=== PATIENT | female | born 1930 | race Caucasian/White ===

== ENCOUNTER 2017-09-24 17:50 | Inpatient (IN) ==
[2017-09-24 18:56] LABS: PT Patient Result 10.5 SECS
[2017-09-24] MEDS ORDERED: ONDANSETRON 4 MG/2 ML VIAL IV STA (19:17)
[2017-09-24] MEDS ORDERED: MEPERIDINE 25 MG/1 ML VIAL IV STA (19:18)
[2017-09-24] MEDS ORDERED: ONDANSETRON 4 MG/2 ML VIAL IV PRN (20:17)
[2017-09-24] MEDS ORDERED: BISACODYL 5 MG TABLET PO PRN (20:17)
[2017-09-24] MEDS ORDERED: tiZANidine 4 MG TABLET PO PRN (20:21)
[2017-09-24] MEDS ORDERED: PROMETHAZINE 25 MG TABLET PO PRN (20:21)
[2017-09-24] MEDS ORDERED: ALBUTEROL/IPRATROPIUM 3 ML NEB RESP TX PRN (20:25)
[2017-09-24] MEDS: SODIUM CHLORIDE 0.9% 1,000 ML IV SCH (20:40)
[2017-09-24 21:11] LABS: Apearance,Urine CLEAR (Clear); Bacteria,Urine Many /HPF (Few); Bilirubin,Urine Negative (Negative); Blood, Urine Negative (Negative); Glucose,Urine (UA) Negative (Negative); Hyaline Casts,Urine 1 /LPF (0-3); Ketones,Urine Negative (Negative); Mucus,Urine Occasional /LPF (Occasional); Nitrite,Urine Positive (Negative); Protein,Urine Negative; RBC,Urine 1 /HPF (0-4); Renal Epithelial Cells,Urine Occasional /HPF (<1); Urine Color Yellow (Yellow); Urine Specific Gravity 1.005 (1.001-1.035); Urine Urobilinogen < 2.0 EU/DL (0.2-1.0); WBC,Urine 56 /HPF (0-6)
[2017-09-24] MEDS ORDERED: MAGNESIUM SULF RIDER 4 GM in PREMIX 1 EACH IV ONE (21:48)
[2017-09-24] MEDS: MORPHINE 4 MG/1 ML VIAL IV PRN (22:10)
[2017-09-24] MEDS: LOVASTATIN 20 MG TABLET PO SCH (22:46)
[2017-09-24] MEDS: TEMAZEPAM 15 MG CAPSULE PO PRN (22:46)
[2017-09-24] MEDS: METHENAMINE HIPPURATE 1 GM TABLET PO SCH (22:47)
[2017-09-24] MEDS: GABAPENTIN 600 MG TABLET PO SCH (22:47)
[2017-09-24] MEDS: FAMOTIDINE 20 MG TABLET PO SCH (22:47)
[2017-09-24] MEDS: cycloSPORINE OPH EMUL 1 VIAL BOTH EYES SCH (22:50)
[2017-09-25] MEDS: SODIUM CHLORIDE 0.9% 1,000 ML IV SCH ×3 (02:56→16:38)
[2017-09-25 05:55] LABS: Basophils % 0.3 % (0.0-0.8); Eosinophils # 0.2 10*3/uL (0.0-0.87); Eosinophils % 2.5 % (0.00-10.9); Hematocrit 28.2 VOL% (35.7-47.0); Hemoglobin 9.1 GM/DL (12.0-16.0); Immature Granulocytes % 0.4 %; Immature Granulocytes Absolute 0.03 #; Lymphocytes # 1.4 10*3/uL (1.4-4.0); Lymphocytes % 20.1 % (21.3-54.2); Mean Corpuscular HGB Conc 32.3 GM/DL (32-36); Mean Corpuscular Hemoglobin 33 PG (27-34); Mean Corpuscular Volume 103.3 FL (87-102); Mean Platelet Volume 9.9 FL (9.6-12.0); Monocytes # 0.7 10*3/uL (0.11-0.8); Monocytes % 9.7 % (1.7-12.7); Neutrophils # 4.5 10*3/uL (1.4-7.4); Platelet Count 200 T/CUMM (130-400); Red Blood Count 2.73 MC/CUMM (3.8-5.5); Red Cell Distribution Width 12.3 % (9.3-17.3); White Blood Count 6.7 T/CUMM (4-12)
[2017-09-25 06:51] LABS: Alanine Aminotransferase 15 U/L (13-56); Albumin 2.6 G/DL (3.4-5.0); Alkaline Phosphatase 37 U/L (45-117); Aspartate Amino Transferase 15 U/L (0-37); Bilirubin,Total < 0.39 MG/DL (0.2-1.0); Blood Urea Nitrogen 11 MG/DL (7-18); Calcium 7.6 MG/DL (8.5-10.1); Glucose 93 MG/DL (74-106); Osmolality,Calculated 273.7 MOS/KG (273-304); Sodium 138 MMOL/L (136-145); Total Protein 5.3 G/DL (6.4-8.3)
[2017-09-25] MEDS ORDERED: ceFAZolin 1,000 MG in SYRINGE 1 EACH IV ONE (07:26)
[2017-09-25] MEDS ORDERED: FAMOTIDINE 20 MG/2 ML VIAL IV ONE (08:13)
[2017-09-25] MEDS ORDERED: BACITRACIN OINT 0.9 GM PACK TOP ONE ×2 (08:29→09:29)
[2017-09-25] MEDS ORDERED: PIROXICAM 20 MG PO SCH (09:00)
[2017-09-25] MEDS ORDERED: ENOXAPARIN 40 MG/0.4 ML SYRINGE SUBCUT SCH (09:00)
[2017-09-25] MEDS ORDERED: ceFAZolin 1,000 MG VIAL ONE (09:29)
[2017-09-25] MEDS ORDERED: MAGNESIUM HYDROXIDE SUSP 30 ML UDCUP PO PRN (09:32)
[2017-09-25] MEDS ORDERED: ROPIVACAINE 0.5% 30 ML VIAL ONE (10:12)
[2017-09-25] MEDS ORDERED: HYDROmorphone 2 MG/1 ML VIAL ONE (10:34)
[2017-09-25] MEDS ORDERED: ONDANSETRON 4 MG/2 ML VIAL ONE ×2 (10:35→10:43)
[2017-09-25] MEDS: HYDROmorphone 2 MG/1 ML VIAL IV PRN ×2 (10:36→10:55)
[2017-09-25] MEDS ORDERED: MIDAZOLAM 2 MG/2 ML VIAL ONE (10:42)
[2017-09-25] MEDS ORDERED: DEXAMETHASONE 10 MG/1 ML VIAL ONE (10:42)
[2017-09-25] MEDS ORDERED: fentaNYL 100 MCG/2 ML VIAL ONE (10:42)
[2017-09-25] MEDS ORDERED: SEVOFLURANE 1 UNIT/15 MINUTE INH ONE (10:42)
[2017-09-25] MEDS ORDERED: NEOSTIGMINE 10 MG/10 ML VIAL ONE (10:43)
[2017-09-25] MEDS ORDERED: GLYCOPYRROLATE 0.4 MG/2 ML VIAL ONE (10:43)
[2017-09-25] MEDS ORDERED: ETOMIDATE 40 MG/20 ML VIAL IV ONE (10:43)
[2017-09-25] MEDS: MORPHINE 4 MG/1 ML VIAL IV PRN ×2 (11:40→15:42)
[2017-09-25] MEDS: KETOROLAC 15 MG/1 ML VIAL IV SCH ×3 (11:43→22:20)
[2017-09-25] MEDS: METHENAMINE HIPPURATE 1 GM TABLET PO SCH ×2 (12:19→20:32)
[2017-09-25] MEDS: RALOXIFENE 60 MG TABLET PO SCH (12:19)
[2017-09-25] MEDS: FAMOTIDINE 20 MG TABLET PO SCH ×2 (12:20→20:33)
[2017-09-25] MEDS: GABAPENTIN 600 MG TABLET PO SCH ×3 (12:20→20:31)
[2017-09-25] MEDS: cycloSPORINE OPH EMUL 1 VIAL BOTH EYES SCH ×2 (12:20→20:31)
[2017-09-25] MEDS: NORTRIPTYLINE 25 MG CAPSULE PO SCH (12:20)
[2017-09-25] MEDS: PANTOPRAZOLE 40 MG TABLET PO SCH (12:20)
[2017-09-25] MEDS: ACETAMINOPHEN 500 MG TABLET PO SCH ×2 (14:09→20:33)
[2017-09-25] MEDS: ceFAZolin 1,000 MG in SYRINGE 1 EACH IV SCH ×2 (15:42→22:43)
[2017-09-25] MEDS: FONDAPARINUX 2.5 MG/0.5 ML SYRINGE SUBCUT SCH (20:29)
[2017-09-25] MEDS: SULFAMETHOX/TRIMETHOPRIM 800-160 MG TABLET PO SCH (20:31)
[2017-09-25] MEDS: LOVASTATIN 20 MG TABLET PO SCH (20:32)
[2017-09-25] MEDS: TEMAZEPAM 15 MG CAPSULE PO PRN (20:32)
[2017-09-26 03:38] LABS: Basophils % 0.1 % (0.0-0.8); Hematocrit 24.9 VOL% (35.7-47.0); Hemoglobin 8.1 GM/DL (12.0-16.0); Immature Granulocytes % 0.6 %; Immature Granulocytes Absolute 0.09 #; Lymphocytes % 7.2 % (21.3-54.2); Mean Corpuscular HGB Conc 32.5 GM/DL (32-36); Mean Corpuscular Hemoglobin 34 PG (27-34); Mean Corpuscular Volume 105.5 FL (87-102); Monocytes # 0.9 10*3/uL (0.11-0.8); Monocytes % 6.3 % (1.7-12.7); Neutrophils % 85.8 % (38.7-73.9); Platelet Count 184 T/CUMM (130-400); Red Blood Count 2.36 MC/CUMM (3.8-5.5); Red Cell Distribution Width 12.2 % (9.3-17.3)
[2017-09-26] MEDS: SODIUM CHLORIDE 0.9% 1,000 ML IV SCH (03:55)
[2017-09-26] MEDS: KETOROLAC 15 MG/1 ML VIAL IV SCH (03:55)
[2017-09-26 04:01] LABS: Calcium 7.2 MG/DL (8.5-10.1); Potassium 4.2 MMOL/L (3.5-5.1)
[2017-09-26] MEDS: ACETAMINOPHEN 500 MG TABLET PO SCH ×2 (04:05→08:06)
[2017-09-26] MEDS ORDERED: SODIUM CHLORIDE 0.9% 1,000 ML IV PRN ×2 (07:03→08:31)
[2017-09-26] MEDS ORDERED: FUROSEMIDE 40 MG/4 ML VIAL IV PRN (07:13)
[2017-09-26] MEDS: PANTOPRAZOLE 40 MG TABLET PO SCH (08:05)
[2017-09-26] MEDS: RALOXIFENE 60 MG TABLET PO SCH (08:05)
[2017-09-26] MEDS: NORTRIPTYLINE 25 MG CAPSULE PO SCH (08:05)
[2017-09-26] MEDS: GABAPENTIN 600 MG TABLET PO SCH ×3 (08:05→20:14)
[2017-09-26] MEDS: SULFAMETHOX/TRIMETHOPRIM 800-160 MG TABLET PO SCH (08:05)
[2017-09-26] MEDS: DOCUSATE SODIUM 100 MG CAPSULE PO PRN (08:05)
[2017-09-26] MEDS: FAMOTIDINE 20 MG TABLET PO SCH ×2 (08:06→20:14)
[2017-09-26] MEDS: cycloSPORINE OPH EMUL 1 VIAL BOTH EYES SCH ×2 (08:06→20:14)
[2017-09-26] MEDS: METHENAMINE HIPPURATE 1 GM TABLET PO SCH ×2 (08:06→20:13)
[2017-09-26] MEDS: MORPHINE 4 MG/1 ML VIAL IV PRN (11:07)
[2017-09-26] MEDS: CELECOXIB 200 MG CAPSULE PO SCH (14:53)
[2017-09-26] MEDS: TEMAZEPAM 15 MG CAPSULE PO PRN (20:13)
[2017-09-26] MEDS: LOVASTATIN 20 MG TABLET PO SCH (20:13)
[2017-09-26] MEDS: NITROFURANTOIN MACRO/MONO 100 MG CAPSULE PO SCH (20:14)
[2017-09-26] MEDS: FONDAPARINUX 2.5 MG/0.5 ML SYRINGE SUBCUT SCH (20:14)
[2017-09-27 06:18] LABS: Basophils % 0.2 % (0.0-0.8); Eosinophils # 0.3 10*3/uL (0.0-0.87); Eosinophils % 2.1 % (0.00-10.9); Hematocrit 30.9 VOL% (35.7-47.0); Immature Granulocytes % 0.5 %; Immature Granulocytes Absolute 0.06 #; Lymphocytes # 1.5 10*3/uL (1.4-4.0); Lymphocytes % 11.3 % (21.3-54.2); Mean Corpuscular HGB Conc 32.4 GM/DL (32-36); Mean Corpuscular Hemoglobin 33 PG (27-34); Mean Platelet Volume 10.3 FL (9.6-12.0); Monocytes # 0.8 10*3/uL (0.11-0.8); Monocytes % 5.9 % (1.7-12.7); Neutrophils # 10.2 10*3/uL (1.4-7.4); Platelet Count 191 T/CUMM (130-400); Red Blood Count 3.06 MC/CUMM (3.8-5.5); Red Cell Distribution Width 14.3 % (9.3-17.3); White Blood Count 12.8 T/CUMM (4-12)
[2017-09-27] MEDS: MORPHINE 4 MG/1 ML VIAL IV PRN (08:59)
[2017-09-27] MEDS: RALOXIFENE 60 MG TABLET PO SCH (09:05)
[2017-09-27] MEDS: CELECOXIB 200 MG CAPSULE PO SCH (09:05)
[2017-09-27] MEDS: GABAPENTIN 600 MG TABLET PO SCH ×3 (09:06→21:56)
[2017-09-27] MEDS: NITROFURANTOIN MACRO/MONO 100 MG CAPSULE PO SCH ×2 (09:06→21:56)
[2017-09-27] MEDS: METHENAMINE HIPPURATE 1 GM TABLET PO SCH ×2 (09:06→21:55)
[2017-09-27] MEDS: PANTOPRAZOLE 40 MG TABLET PO SCH (09:08)
[2017-09-27] MEDS: cycloSPORINE OPH EMUL 1 VIAL BOTH EYES SCH ×2 (09:08→21:54)
[2017-09-27] MEDS: FAMOTIDINE 20 MG TABLET PO SCH ×2 (09:08→21:56)
[2017-09-27] MEDS: NORTRIPTYLINE 25 MG CAPSULE PO SCH (09:08)
[2017-09-27] MEDS: DOCUSATE SODIUM 100 MG CAPSULE PO PRN (09:09)
[2017-09-27] MEDS ORDERED: TUBERCULIN SKIN TEST 0.1 ML SYRINGE INTRADERM ONE (10:33)
[2017-09-27] MEDS ORDERED: MECLIZINE 25 MG TABLET PO PRN (11:49)
[2017-09-27] MEDS: ASPIRIN EC 81 MG TABLET PO SCH (12:49)
[2017-09-27] MEDS: LOVASTATIN 20 MG TABLET PO SCH (21:56)
[2017-09-27] MEDS: FONDAPARINUX 2.5 MG/0.5 ML SYRINGE SUBCUT SCH (21:59)
[2017-09-28] MEDS: TEMAZEPAM 15 MG CAPSULE PO PRN (00:10)
[2017-09-28 06:29] LABS: Basophils % 0.2 % (0.0-0.8); Eosinophils # 0.3 10*3/uL (0.0-0.87); Eosinophils % 3.7 % (0.00-10.9); Hematocrit 34.3 VOL% (35.7-47.0); Hemoglobin 11.6 GM/DL (12.0-16.0); Immature Granulocytes % 0.6 %; Immature Granulocytes Absolute 0.05 #; Lymphocytes # 1.2 10*3/uL (1.4-4.0); Lymphocytes % 14.4 % (21.3-54.2); Mean Corpuscular HGB Conc 33.8 GM/DL (32-36); Mean Corpuscular Hemoglobin 33 PG (27-34); Mean Corpuscular Volume 96.9 FL (87-102); Monocytes # 0.6 10*3/uL (0.11-0.8); Monocytes % 7.5 % (1.7-12.7); Neutrophils # 6.1 10*3/uL (1.4-7.4); Neutrophils % 73.6 % (38.7-73.9); Platelet Count 229 T/CUMM (130-400); Red Blood Count 3.54 MC/CUMM (3.8-5.5); Red Cell Distribution Width 13.8 % (9.3-17.3); White Blood Count 8.3 T/CUMM (4-12)
[2017-09-28 07:00] LABS: Risk Ratio 2.6; VLDL CHOLESTEROL 21.2 MG/DL
[2017-09-28] MEDS: METHENAMINE HIPPURATE 1 GM TABLET PO SCH ×2 (09:15→21:28)
[2017-09-28] MEDS: GABAPENTIN 600 MG TABLET PO SCH ×3 (09:15→21:29)
[2017-09-28] MEDS: NORTRIPTYLINE 25 MG CAPSULE PO SCH (09:15)
[2017-09-28] MEDS: cycloSPORINE OPH EMUL 1 VIAL BOTH EYES SCH ×2 (09:15→21:38)
[2017-09-28] MEDS: ASPIRIN EC 81 MG TABLET PO SCH (09:15)
[2017-09-28] MEDS: FAMOTIDINE 20 MG TABLET PO SCH ×2 (09:15→21:29)
[2017-09-28] MEDS: CELECOXIB 200 MG CAPSULE PO SCH (09:15)
[2017-09-28] MEDS: NITROFURANTOIN MACRO/MONO 100 MG CAPSULE PO SCH ×2 (09:15→21:29)
[2017-09-28] MEDS: RALOXIFENE 60 MG TABLET PO SCH (09:15)
[2017-09-28] MEDS: PANTOPRAZOLE 40 MG TABLET PO SCH (09:15)
[2017-09-28] MEDS: LOVASTATIN 20 MG TABLET PO SCH (21:28)
[2017-09-28] MEDS: FONDAPARINUX 2.5 MG/0.5 ML SYRINGE SUBCUT SCH (21:29)
[2017-09-28] MEDS: MORPHINE 4 MG/1 ML VIAL IV PRN (21:39)
[2017-09-29] MEDS: ASPIRIN EC 81 MG TABLET PO SCH (08:13)
[2017-09-29] MEDS: METHENAMINE HIPPURATE 1 GM TABLET PO SCH (08:13)
[2017-09-29] MEDS: PANTOPRAZOLE 40 MG TABLET PO SCH (08:13)
[2017-09-29] MEDS: CELECOXIB 200 MG CAPSULE PO SCH (08:13)
[2017-09-29] MEDS: GABAPENTIN 600 MG TABLET PO SCH ×2 (08:13→14:21)
[2017-09-29] MEDS: RALOXIFENE 60 MG TABLET PO SCH (08:13)
[2017-09-29] MEDS: FAMOTIDINE 20 MG TABLET PO SCH (08:13)
[2017-09-29] MEDS: NITROFURANTOIN MACRO/MONO 100 MG CAPSULE PO SCH (08:13)
[2017-09-29] MEDS: cycloSPORINE OPH EMUL 1 VIAL BOTH EYES SCH (08:13)
[2017-09-29] MEDS: NORTRIPTYLINE 25 MG CAPSULE PO SCH (08:13)
[2017-09-29 12:01] VITALS: BP 140/78
== END 2017-09-29 14:38 | DRG 481 ==
LOC: EDBD → EDUNIT# → N.ED 17:50 → SUATTDRO 20:17 → N.EDINP 20:17 → N.3E 21:29
PROVIDERS: ADMIT Hospitalist; ATTEND Hospitalist

== ENCOUNTER 2018-02-15 05:26 | Inpatient (IN) ==
[2018-02-09 15:14] LABS: Basophils % 0.4 % (0.0-0.8); Eosinophils # 0.2 10*3/uL (0.0-0.87); Eosinophils % 2.5 % (0.00-10.9); Hematocrit 35.3 VOL% (35.7-47.0); Hemoglobin 11.2 GM/DL (12.0-16.0); Immature Granulocytes % 0.3 %; Immature Granulocytes Absolute 0.02 #; Lymphocytes # 1.6 10*3/uL (1.4-4.0); Lymphocytes % 24.4 % (21.3-54.2); Mean Corpuscular HGB Conc 31.7 GM/DL (32-36); Mean Corpuscular Hemoglobin 33 PG (27-34); Mean Corpuscular Volume 103.5 FL (87-102); Mean Platelet Volume 9.5 FL (9.6-12.0); Monocytes # 0.4 10*3/uL (0.11-0.8); Monocytes % 5.4 % (1.7-12.7); Neutrophils # 4.5 10*3/uL (1.4-7.4); Platelet Count 338 T/CUMM (130-400); Red Blood Count 3.41 MC/CUMM (3.8-5.5); Red Cell Distribution Width 12.4 % (9.3-17.3); White Blood Count 6.7 T/CUMM (4-12)
[2018-02-09 15:22] LABS: Apearance,Urine CLOUDY (Clear); Bilirubin,Urine Negative (Negative); Blood, Urine Negative (Negative); Glucose,Urine (UA) Negative (Negative); Hyaline Casts,Urine 4 /LPF (0-3); Ketones,Urine Negative (Negative); Mucus,Urine Occasional /LPF (Occasional); Nitrite,Urine Negative (Negative); Protein,Urine Negative; RBC,Urine 5 /HPF (0-4); Urine Color Yellow (Yellow); Urine Specific Gravity 1.019 (1.001-1.035); Urine Urobilinogen < 2.0 EU/DL (0.2-1.0); WBC,Urine 477 /HPF (0-6)
[2018-02-09 15:41] LABS: Alanine Aminotransferase 15 U/L (13-56); Albumin 3.5 G/DL (3.4-5.0); Alkaline Phosphatase 103 U/L (45-117); Aspartate Amino Transferase 18 U/L (0-37); Bilirubin,Total < 0.39 MG/DL (0.2-1.0); Blood Urea Nitrogen 21 MG/DL (7-18); Calcium 9.2 MG/DL (8.5-10.1); Glucose 98 MG/DL (74-106); Osmolality,Calculated 277.7 MOS/KG (273-304); Potassium 4.5 MMOL/L (3.5-5.1); Sodium 138 MMOL/L (136-145); Total Protein 7.6 G/DL (6.4-8.3)
[2018-02-15] MEDS ORDERED: VANCOMYCIN INJ 1,000 MG in SODIUM CHLORIDE 0.9% 250 ML IV ONE (06:30)
[2018-02-15] MEDS ORDERED: ceFAZolin 1,000 MG in SYRINGE 1 EACH IV ONE (06:30)
[2018-02-15 06:50] LABS: INR 0.9; PT Patient Result 10.2 SECS; Partial Thromboplastin Time 25.8 SECS (0-40)
[2018-02-15] MEDS ORDERED: EPINEPHrine 1 MG/ML VIAL ONE (07:19)
[2018-02-15] MEDS ORDERED: LIDOCAINE 1% 5 ML VIAL ONE (07:19)
[2018-02-15] MEDS ORDERED: BUPIVACAINE 0.5% 50 ML VIAL ONE (07:19)
[2018-02-15] MEDS ORDERED: FAMOTIDINE 20 MG TABLET PO ONE (07:20)
[2018-02-15] MEDS ORDERED: LACTATED RINGERS 1,000 ML IV SCH (07:30)
[2018-02-15] MEDS ORDERED: VANCOMYCIN 1,000 MG VIAL ONE (08:07)
[2018-02-15] MEDS ORDERED: ceFAZolin 1,000 MG VIAL ONE (08:07)
[2018-02-15] MEDS ORDERED: TEMAZEPAM 15 MG CAPSULE PO PRN (09:13)
[2018-02-15] MEDS ORDERED: MECLIZINE 25 MG TABLET PO PRN (09:13)
[2018-02-15] MEDS ORDERED: BISACODYL 5 MG TABLET PO PRN (09:13)
[2018-02-15] MEDS ORDERED: diphenhydrAMINE CAP 25 MG CAPSULE PO PRN (09:15)
[2018-02-15] MEDS ORDERED: oxyCODONE IR 5 MG TABLET PO PRN ×2 (09:15)
[2018-02-15] MEDS ORDERED: ONDANSETRON 4 MG/2 ML VIAL IV PRN (09:15)
[2018-02-15] MEDS ORDERED: MAGNESIUM HYDROXIDE SUSP 30 ML UDCUP PO PRN (09:15)
[2018-02-15] MEDS ORDERED: HYDROmorphone 2 MG/1 ML VIAL IV PRN ×2 (09:19)
[2018-02-15] MEDS ORDERED: TRANEXAMIC ACID 1,000 MG/10 ML VIAL ONE (09:32)
[2018-02-15] MEDS ORDERED: BACITRACIN OINT 0.9 GM PACK TOP ONE (10:10)
[2018-02-15] MEDS ORDERED: MIDAZOLAM 2 MG/2 ML VIAL ONE (11:45)
[2018-02-15] MEDS ORDERED: PROPOFOL 200 MG/20 ML VIAL IV ONE (11:45)
[2018-02-15] MEDS ORDERED: fentaNYL 100 MCG/2 ML VIAL ONE (11:45)
[2018-02-15] MEDS ORDERED: BUPIVACAINE SPINAL 0.75% 2 ML AMP SPINAL ONE (11:45)
[2018-02-15] MEDS ORDERED: DEXAMETHASONE 10 MG/1 ML VIAL ONE (11:46)
[2018-02-15] MEDS ORDERED: ONDANSETRON 4 MG/2 ML VIAL ONE (11:46)
[2018-02-15] MEDS ORDERED: PROPOFOL 500 MG/50 ML BOTTLE IV ONE (11:46)
[2018-02-15 12:21] LABS: Apearance,Urine Slightly Hazy (Clear); Bacteria,Urine Moderate /HPF (Few); Bilirubin,Urine Negative (Negative); Blood, Urine Small mg/dL (Negative); Glucose,Urine (UA) Negative (Negative); Ketones,Urine Negative (Negative); Nitrite,Urine Positive (Negative); Protein,Urine Negative; RBC,Urine 2 /HPF (0-4); Urine Color Yellow (Yellow); Urine Specific Gravity 1.005 (1.001-1.035); Urine Urobilinogen < 2.0 EU/DL (0.2-1.0); WBC,Urine 137 /HPF (0-6)
[2018-02-15] MEDS ORDERED: KETAMINE 500 MG/10 ML VIAL ONE (13:57)
[2018-02-15] MEDS: KETOROLAC 15 MG/1 ML VIAL IV SCH ×2 (14:32→19:57)
[2018-02-15] MEDS: ACETAMINOPHEN 500 MG TABLET PO SCH ×2 (14:33→19:56)
[2018-02-15] MEDS: GABAPENTIN 600 MG TABLET PO SCH ×2 (14:33→21:06)
[2018-02-15] MEDS: LACTATED RINGERS 1,000 ML IV SCH ×2 (14:45→19:30)
[2018-02-15] MEDS: ceFAZolin 1,000 MG in SYRINGE 1 EACH IV SCH ×2 (14:55→21:07)
[2018-02-15] MEDS: LOVASTATIN 20 MG TABLET PO SCH (16:47)
[2018-02-15] MEDS: DOCUSATE SODIUM 100 MG CAPSULE PO SCH (21:06)
[2018-02-15] MEDS: METHENAMINE HIPPURATE 1 GM TABLET PO SCH (21:06)
[2018-02-15] MEDS: FAMOTIDINE 20 MG TABLET PO SCH (21:06)
[2018-02-16] MEDS: ACETAMINOPHEN 500 MG TABLET PO SCH ×2 (00:23→08:06)
[2018-02-16] MEDS: FONDAPARINUX 2.5 MG/0.5 ML SYRINGE SUBCUT SCH (03:30)
[2018-02-16 06:39] LABS: Osmolality,Calculated 275.7 MOS/KG (273-304)
[2018-02-16] MEDS: KETOROLAC 15 MG/1 ML VIAL IV SCH (07:09)
[2018-02-16 07:16] LABS: Basophils % 0.1 % (0.0-0.8); Eosinophils % 0.1 % (0.00-10.9); Hematocrit 19.5 VOL% (35.7-47.0); Immature Granulocytes % 0.4 %; Immature Granulocytes Absolute 0.03 #; Lymphocytes # 1.3 10*3/uL (1.4-4.0); Lymphocytes % 17.8 % (21.3-54.2); Mean Corpuscular HGB Conc 31.8 GM/DL (32-36); Mean Corpuscular Hemoglobin 33 PG (27-34); Mean Corpuscular Volume 104.3 FL (87-102); Mean Platelet Volume 9.8 FL (9.6-12.0); Monocytes # 0.6 10*3/uL (0.11-0.8); Monocytes % 7.6 % (1.7-12.7); Neutrophils # 5.4 10*3/uL (1.4-7.4); Platelet Count 179 T/CUMM (130-400); Red Blood Count 1.87 MC/CUMM (3.8-5.5); Red Cell Distribution Width 12.2 % (9.3-17.3); White Blood Count 7.4 T/CUMM (4-12)
[2018-02-16 07:21] LABS: Hemoglobin 6.2 GM/DL (12.0-16.0)
[2018-02-16] MEDS: DOCUSATE SODIUM 100 MG CAPSULE PO SCH ×2 (08:06→21:59)
[2018-02-16] MEDS: METHENAMINE HIPPURATE 1 GM TABLET PO SCH ×2 (08:07→21:59)
[2018-02-16] MEDS: RALOXIFENE 60 MG TABLET PO SCH (08:07)
[2018-02-16] MEDS: GABAPENTIN 600 MG TABLET PO SCH ×3 (08:07→21:57)
[2018-02-16] MEDS ORDERED: SODIUM CHLORIDE 0.9% 1,000 ML IV PRN (08:38)
[2018-02-16] MEDS ORDERED: ACETAMINOPHEN 325 MG TABLET PO PRN (09:16)
[2018-02-16 09:47] LABS: Hematocrit 22.3 VOL% (35.7-47.0); Hemoglobin 6.9 GM/DL (12.0-16.0)
[2018-02-16] MEDS ORDERED: TUBERCULIN SKIN TEST 0.1 ML SYRINGE INTRADERM ONE (09:55)
[2018-02-16] MEDS: LACTATED RINGERS 1,000 ML IV SCH (11:17)
[2018-02-16] MEDS ORDERED: CELECOXIB 200 MG CAPSULE PO SCH (15:16)
[2018-02-16] MEDS: LOVASTATIN 20 MG TABLET PO SCH ×2 (16:33→18:04)
[2018-02-16] MEDS: FAMOTIDINE 20 MG TABLET PO SCH (22:00)
[2018-02-16 22:24] LABS: Hematocrit 29.2 VOL% (35.7-47.0); Hemoglobin 9.4 GM/DL (12.0-16.0)
[2018-02-17] MEDS: FONDAPARINUX 2.5 MG/0.5 ML SYRINGE SUBCUT SCH (04:23)
[2018-02-17 06:26] LABS: Basophils % 0.5 % (0.0-0.8); Eosinophils # 0.3 10*3/uL (0.0-0.87); Eosinophils % 3.1 % (0.00-10.9); Hematocrit 29.5 VOL% (35.7-47.0); Hemoglobin 9.6 GM/DL (12.0-16.0); Immature Granulocytes % 0.4 %; Immature Granulocytes Absolute 0.03 #; Lymphocytes # 1.7 10*3/uL (1.4-4.0); Lymphocytes % 19.9 % (21.3-54.2); Mean Corpuscular HGB Conc 32.5 GM/DL (32-36); Mean Corpuscular Hemoglobin 31 PG (27-34); Mean Corpuscular Volume 95.5 FL (87-102); Mean Platelet Volume 10.5 FL (9.6-12.0); Monocytes # 0.7 10*3/uL (0.11-0.8); Monocytes % 8.3 % (1.7-12.7); Neutrophils # 5.7 10*3/uL (1.4-7.4); Neutrophils % 67.8 % (38.7-73.9); Platelet Count 182 T/CUMM (130-400); Red Blood Count 3.09 MC/CUMM (3.8-5.5); Red Cell Distribution Width 17.1 % (9.3-17.3); White Blood Count 8.4 T/CUMM (4-12)
[2018-02-17] MEDS: cefTAZidime 1,000 MG in SYRINGE 1 EACH IV SCH ×2 (09:18→21:57)
[2018-02-17] MEDS: RALOXIFENE 60 MG TABLET PO SCH (09:18)
[2018-02-17] MEDS: METHENAMINE HIPPURATE 1 GM TABLET PO SCH ×2 (09:18→21:58)
[2018-02-17] MEDS: GABAPENTIN 600 MG TABLET PO SCH ×2 (09:18→16:43)
[2018-02-17] MEDS: DOCUSATE SODIUM 100 MG CAPSULE PO SCH ×2 (09:18→21:58)
[2018-02-17] MEDS: LOVASTATIN 20 MG TABLET PO SCH (16:53)
[2018-02-17] MEDS ORDERED: TEMAZEPAM 15 MG CAPSULE PO PRN (17:55)
[2018-02-17] MEDS: FAMOTIDINE 20 MG TABLET PO SCH (22:04)
[2018-02-18] MEDS: FONDAPARINUX 2.5 MG/0.5 ML SYRINGE SUBCUT SCH (03:30)
[2018-02-18 04:38] LABS: Basophils % 0.4 % (0.0-0.8); Eosinophils # 0.7 10*3/uL (0.0-0.87); Eosinophils % 9.8 % (0.00-10.9); Hematocrit 29.7 VOL% (35.7-47.0); Hemoglobin 9.4 GM/DL (12.0-16.0); Immature Granulocytes % 0.4 %; Immature Granulocytes Absolute 0.03 #; Lymphocytes # 1.6 10*3/uL (1.4-4.0); Lymphocytes % 22.3 % (21.3-54.2); Mean Corpuscular HGB Conc 31.6 GM/DL (32-36); Mean Corpuscular Hemoglobin 30 PG (27-34); Mean Corpuscular Volume 95.8 FL (87-102); Mean Platelet Volume 9.9 FL (9.6-12.0); Monocytes # 0.7 10*3/uL (0.11-0.8); Monocytes % 9.2 % (1.7-12.7); Neutrophils # 4.3 10*3/uL (1.4-7.4); Neutrophils % 57.9 % (38.7-73.9); Platelet Count 196 T/CUMM (130-400); Red Cell Distribution Width 16.4 % (9.3-17.3); White Blood Count 7.4 T/CUMM (4-12)
[2018-02-18] MEDS: DOCUSATE SODIUM 100 MG CAPSULE PO SCH (08:45)
[2018-02-18] MEDS: RALOXIFENE 60 MG TABLET PO SCH (08:45)
[2018-02-18] MEDS: METHENAMINE HIPPURATE 1 GM TABLET PO SCH (08:45)
[2018-02-18] MEDS ORDERED: LACTOBACILLUS RHAMNOSUS GG CAPSULE PO SCH (09:00)
[2018-02-18] MEDS ORDERED: CEFUROXIME 500 MG TABLET PO SCH (09:00)
[2018-02-18] MEDS ORDERED: GABAPENTIN 300 MG CAPSULE PO SCH (09:00)
[2018-02-18 12:00] VITALS: BP 121/57
[2018-02-18] MEDS ORDERED: SIMVASTATIN 10 MG TABLET PO SCH (17:00)
== END 2018-02-18 13:30 | disposition swing bed (61) | DRG 467 ==
LOC: N.SDSINP 05:26 → N.3E 13:33
PROVIDERS: ADMIT Orthopaedic Surgery; ATTEND Orthopaedic Surgery